=== PATIENT | male | born 1995 | race Caucasian/White ===

== ENCOUNTER 2018-10-25 10:38 | Emergency (ER) | payer BC ==
[~2018-10-25] VITALS: Ht 172.7 cm; Wt 111.1 kg
[~2018-10-25 10:38] MED LIST: INSASP10V SC
--- NOTE | 2018-10-25 11:33 | ED Upper Extremity ---
General Chief Complaint: Upper Extremity Stated Complaint: L ELBOW INJ Nursing Triage Note: Pt c/o L elbow pain after catching a ball yesterday. Pt reports pain worse with movement. Nursing Sepsis Screen: No Definite Risk Source: patient (MANDY CEBALLOS MD) History of Present Illness Date Seen by Provider: Oct 25, 2018 Time Seen by Provider: 11:29 Initial Comments The patient is a 23-year-old white male who presents with left elbow pain. He reports that he was playing with others. They were using a soft dodge ball. He jumped and caught the ball above his head and then was struck by another twisting his arm. He had pain in the beginning and this has increased. He notes decreased ability to rotate at the elbow and to ship mate. Pain/Injury Location: left elbow Method of Injury: direct blow (MANDY CEBALLOS MD) Allergies and Home Medications Allergies Coded Allergies: Cefaclor (Unverified Allergy, Unknown, RASH, 08/30/14) Home Medications Insulin Aspart 10 Unit/0.1 Ml Susp, Unknown Dose SC UD, (Reported) PER OMNIPOD PUMP Patient Home Medication List Home Medication List Reviewed: Yes (CHELE DELA CRUZ MD) Review of Systems Constitutional: see HPI EENTM: no symptoms reported Respiratory: no symptoms reported Cardiovascular: no symptoms reported Gastrointestinal: no symptoms reported Genitourinary: no symptoms reported Musculoskeletal: see HPI Skin: no symptoms reported Psychiatric/Neurological: No Symptoms Reported (MADNY CEBALLOS MD) Past Spcsduw-Eyolsn-Swixfd Hx Patient Social History Alcohol Use: Denies Use Recreational Drug Use: No Smoking Status: Never a Smoker Recent Foreign Travel: No Contact w/Someone Who Travel: No Recent Infectious Disease Expo: No Recent Hopitalizations: No (MANDY CEBALLOS MD) Immunizations Up To Date Tetanus Booster (TDap): Less than 5yrs (MANDY CEBALLOS MD) Seasonal Allergies Seasonal Allergies: No (MANDY CEBALLOS MD) Past Medical History Surgeries: Yes Adenoidectomy, Orthopedic, Tonsillectomy Respiratory: No Cardiac: No Neurological: No Reproductive Disorders: No Gastrointestinal: No Musculoskeletal: No Endocrine: Yes Diabetes, Insulin dep HEENT: No Cancer: No Psychosocial: No Integumentary: No Blood Disorders: No (MANDY CEBALLOS MD) Family Medical History Completed stroke Diabetes mellitus Headache disorder Hypertension No Family History of: AIDS Abdominal aortic aneurysm Baraga's disease Alcoholism Alzheimer's disease Aphasia Arthritis Asthma Cancer of mouth Cardiovascular disease Cataracts Colon cancer Congenital disease Congenital heart disease Coronary thrombosis Cystic fibrosis Deafness or hearing loss Dementia Drug abuse Dysphasia Fibrocystic disease of breast Gastroenteritis Glaucoma Hypercholesterolemia Infertility Kidney disease Myocardial infarction Neoplasm Not obtainable due to adoption Osteoporosis Parkinson's disease Prostate cancer Psychosocial problem Respiratory disorder Seizure disorder Severe allergy Thyroid disease Tuberculosis Visual disorder Physical Exam Vital Signs Vital Signs - First Documented 10/25/18 11:22 Temp 98.4 Pulse 97 Resp 18 B/P (MAP) 130/81 (97) Pulse Ox 98 O2 Delivery Room Air (CHELE DELA CRUZ MD) Vital Signs Capillary Refill : Less Than 3 Seconds (MANDY CEBALLOS MD) Height, Weight, BMI Height: 5'8.00" Weight: 245lbs. oz. 111.624229jz; BMI Method:Stated General Appearance: mild distress HEENT: normal ENT inspection Cardiovascular: normal peripheral pulses, regular rate, rhythm, no edema, no gallop, no JVD, no murmur Respiratory: chest non-tender, lungs clear, normal breath sounds, no respiratory distress, no accessory muscle use The left distal triceps appears denser and firmer than the same area on the right. He exhibits pain to pronation. He also exhibits diminished ship mate on the left. (MANDY CEBALLOS MD) Progress/Results/Core Measures Results/Orders Vital Signs/I&O 10/25/18 11:22 Temp 98.4 Pulse 97 Resp 18 B/P (MAP) 130/81 (97) Pulse Ox 98 O2 Delivery Room Air (CHELE DELA CRUZ MD) Blood Pressure Mean: 97 Progress Progress Note : Progress Note Care of this patient was assumed from Dr. Ceballos at 12:10. Patient was reexamined. He was found to have pain with range of motion in the elbow and wrist. This pain was primarily in the medial elbow. This area was also tender. X-rays were reviewed and discussed with Dr. Banks, radiologist. If further imaging is to be done, we agreed that patient should be screened by an orthopedic provider first. Other more sophisticated imaging such as arthrogram MRI may be indicated for this patient. Patient was fitted with a sling and discharge instructions were reviewed. Names and contact information for local orthopedist were provided. (CHELE DELA CRUZ MD) Diagnostic Imaging Diagonstic Imaging: Xray Plain Films/CT/US/NM/MRI: elbow Comments Elbow x-ray viewed by me and report reviewed. See report below: NAME: GEORGETTE STOLL [facility] REC#: [id number] PT STATUS: REG ER : 1995 PHYSICIAN: MANDY CEBALLOS MD ADMIT DATE: 10/25/18/ER Draft Date of Exam:10/25/18 ELBOW, LEFT, 3 VIEWS INDICATION: Left elbow pain. Time of exam 12:04 PM 3 views left elbow are obtained. Alignment is normal. Joint spaces are well-maintained. No fracture or dislocation is identified. There is suggestion of prominence to the anterior fat pad which may indicate an elbow joint effusion. Occult fracture can also present this way but no fracture is detected. IMPRESSION: There are findings suggestive of an elbow joint effusion, considerations above. No definite fractures detected. Dictated on workstation # [id number] Dict: 10/25/18 1211 Trans: 10/25/18 1214 [facility] [id number] Interpreted by: KATYA BANKS MD (CHELE DELA CRUZ MD) Departure Impression Primary Impression: Injury of left elbow Qualified Codes: S59.902A - Unspecified injury of left elbow, initial encounter Additional Impression: Effusion, left elbow Disposition: 01 HOME, SELF-CARE Condition: Stable Departure-Patient Inst. Decision time for Depature: 12:56 (CHELE DELA CRUZ MD) Referrals: ROXANNE ORLANDO MD NO,LOCAL PHYSICIAN (PCP) Primary Care Physician SUSANNE WASHINGTON MD Patient Instructions: NO INSTRUCTIONS GIVEN Add. Discharge Instructions: Your x-rays did not show any bone fracture injuries. Use the sling for comfort. Exercise range of motion as pain allows. Gradually increase level of activity as pain allows. Return to care promptly if symptoms worsen. Follow- up with your primary care provider and an orthopedic surgeon as soon as possible. Do not exert strenuous forces on your arm/elbow until cleared by physician. Please call today to arrange appointments. Some names and contact information of orthopedic providers are listed below. In the meantime, you may ice your elbow in 20 minute intervals. Take ibuprofen up to 600 mg every 6 hours as needed for pain. Add Tylenol (acetaminophen) up to 1000 mg every 6 hours as needed for additional pain relief. All discharge instructions reviewed with patient and/or family. Voiced understanding. MANDY CEBALLOS MD Oct 25, 2018 11:33 CHELE DELA CRUZ MD Oct 25, 2018 12:41
--- NOTE | 2018-10-25 12:14 | Diagnostic Imaging Report ---
INDICATION: Left elbow pain. Time of exam 12:04 PM 3 views left elbow are obtained. Alignment is normal. Joint spaces are well-maintained. No fracture or dislocation is identified. There is suggestion of prominence to the anterior fat pad which may indicate an elbow joint effusion. Occult fracture can also present this way but no fracture is detected. IMPRESSION: There are findings suggestive of an elbow joint effusion, considerations above. No definite fractures detected. Dictated by: Dictated on workstation # [id number]
[2018-10-25 13:10] VITALS: BP 130/81
--- OUTSIDE RECORDS SUMMARY | 2018-10-26 00:43 | XMS REPORT | Continuity of Care Document ---
Author Author [facility] [address] Organization [facility] [address] Address Unknown Phone Unavailable Allergies There is no data. Medications There is no data. Problems There is no data. Procedures There is no data. Results There is no data. Encounters ACCT No. Visit Date/Time Discharge Status Pt. Type Provider Facility Loc./Unit Complaint [id number] 08/30/2014 00:02:00 08/30/2014 14:30:00 DIS Inpatient
--- OUTSIDE RECORDS SUMMARY | 2018-10-26 00:43 | XMS REPORT | Clinical Summary ---
Author Author [facility] Organization [facility] Address Unknown Phone Unavailable Care Team Providers Care Comptometrist Name Role Phone PCP Unavailable Allergies Active Allergy Reactions Severity Noted Date Comments Cefaclor 12/28/2015 Current Medications Prescription Sig. Disp. Refills Start End Date Status Date insulin aspart (NOVOLOG) Inject under the skin 3 Active 100 unit/mL injection (three) times a day before meals. ketoconazole (NIZORAL) Take one tablet (200 mg 15 tablet 0 12/28/19 Active 200 mg tablet total) by mouth daily. 16 ketoconazole (NIZORAL) 2 Apply topically daily. 30 g 0 12/28/19 Active % cream 16 Active Problems Problem Noted Date Tinea corporis 12/28/2015 Type 1 diabetes mellitus without complication (HCC) 12/28/2015 Well child visit 11/07/2014 Asthma Seasonal allergies Social anxiety disorder Social History Tobacco Use Types Packs/Day Years Used Date Never Smoker Smokeless Tobacco: Never Used Alcohol Use Drinks/Week oz/Week Comments No Sex Assigned at Date Recorded Not on file Last Filed Vital Signs Vital Sign Reading Time Taken Blood Pressure 120/82 12/28/2015 2:41 PM GUITAR TECHNICIAN Pulse 83 12/28/2015 2:41 PM GUITAR TECHNICIAN Temperature - - Respiratory Rate - - Oxygen Saturation - - Inhaled Oxygen - - Concentration Weight 97.5 kg (215 lb) 12/28/2015 2:41 PM GUITAR TECHNICIAN Height - - Body Mass Index - - Plan of Treatment Health Maintenance Due Date Last Done Comments Diabetes Mellitus 1997 Hemoglobin A1C Diabetes Mellitus 1997 Ophthalmology Exam Diabetes Mellitus Urine 1997 Microalbumin Lipid Screening 1997 Td # 1997 Diabetes Mellitus Foot 2007 Exam HPV Vaccine (1 - Male 2012 3-dose series) MCV4 Vaccine (1 of 1 - 2013 2-dose series) Pneumococcal Immunization 2016 19-64 Low/Medium Risk# (1 of 1 - PPSV23) Influenza Vaccine (#1) 2018 Results Not on filefrom Last 3 Months
== END 2018-10-25 13:10 | disposition home or self-care (01) ==
LOC: EDUNIT# 10:38 → ER 10:39
DX: S59.902A Unspecified injury of left elbow, initial encounter (principal); M25.422 Effusion, left elbow; E11.9 Type 2 diabetes mellitus without complications; Z82.49 Family history of ischemic heart disease and other diseases of the circulatory system; Z88.8 Allergy status to other drugs, medicaments and biological substances; Z79.4 Long term (current) use of insulin; Z90.89 Acquired absence of other organs; W51.XXXA Accidental striking against or bumped into by another person, initial encounter; X50.1XXA Overexertion from prolonged static or awkward postures, initial encounter; Y93.64 Activity, baseball
CPT/HCPCS: 73080

== ENCOUNTER 2019-07-26 21:13 | Emergency (ER) | payer BC ==
[~2019-07-26] VITALS: Ht 172.7 cm; Wt 117.9 kg
--- NOTE | 2019-07-26 21:44 | Diagnostic Imaging Report ---
INDICATION: Injury, lateral left foot pain 3 views of the left foot show no fracture, dislocation or other abnormality. IMPRESSION: Normal left foot. Dictated by: Dictated on workstation # [id number]
--- NOTE | 2019-07-26 21:45 | Diagnostic Imaging Report ---
INDICATION: Injury, left ankle pain 3 views of the left ankle show no fracture, dislocation or other abnormality. IMPRESSION: Normal left ankle. Dictated by: Dictated on workstation # [id number]
--- NOTE | 2019-07-26 21:51 | ED Lower Extremity ---
General Chief Complaint: Lower Extremity Stated Complaint: L FOOT/ANKLE PAIN Nursing Triage Note: LEFT LATERAL ANKLE PAIN RADIATING TO TOES AFTER ROLLING ANKLE APPROX. 1230. Nursing Sepsis Screen: No Definite Risk Source: patient Exam Limitations: no limitations History of Present Illness Date Seen by Provider: Jul 26, 2019 Time Seen by Provider: 21:48 Initial Comments To ER with reports of left lateral ankle and foot pain after he twisted it during a class at approximately 12:30 PM today. Onset: just prior to arrival Severity: moderate Pain/Injury Location: left foot, left ankle Method of Injury: twisted Modifying Factors: Worse With Movement Allergies and Home Medications Allergies Coded Allergies: Cefaclor (Unverified Allergy, Unknown, RASH, 08/30/14) Home Medications Insulin Aspart 10 Unit/0.1 Ml Susp, Unknown Dose SC UD, (Reported) PER OMNIPOD PUMP Patient Home Medication List Home Medication List Reviewed: Yes Review of Systems Constitutional: see HPI EENTM: see HPI Respiratory: no symptoms reported Cardiovascular: no symptoms reported Genitourinary: no symptoms reported Musculoskeletal: see HPI Skin: no symptoms reported Psychiatric/Neurological: No Symptoms Reported Past Liugowf-Hdugbh-Keliqb Hx Patient Social History Alcohol Use: Denies Use Recreational Drug Use: No Smoking Status: Never a Smoker 2nd Hand Smoke Exposure: No Recent Foreign Travel: No Contact w/Someone Who Travel: No Recent Infectious Disease Expo: No Recent Hopitalizations: No Physical Abuse: No Sexual Abuse: No Mistreated: No Fear: No Immunizations Up To Date Tetanus Booster (TDap): Less than 5yrs Seasonal Allergies Seasonal Allergies: No Past Medical History Surgeries: Yes Adenoidectomy, Orthopedic, Tonsillectomy Respiratory: No Cardiac: No Neurological: No Reproductive Disorders: No Genitourinary: No Gastrointestinal: No Musculoskeletal: No Endocrine: Yes Diabetes, Insulin dep HEENT: No Cancer: No Psychosocial: No Integumentary: No Blood Disorders: No Family Medical History Completed stroke Diabetes mellitus Headache disorder Hypertension No Family History of: AIDS Abdominal aortic aneurysm Jacob's disease Alcoholism Alzheimer's disease Aphasia Arthritis Asthma Cancer of mouth Cardiovascular disease Cataracts Colon cancer Congenital disease Congenital heart disease Coronary thrombosis Cystic fibrosis Deafness or hearing loss Dementia Drug abuse Dysphasia Fibrocystic disease of breast Gastroenteritis Glaucoma Hypercholesterolemia Infertility Kidney disease Myocardial infarction Neoplasm Not obtainable due to adoption Osteoporosis Parkinson's disease Prostate cancer Psychosocial problem Respiratory disorder Seizure disorder Severe allergy Thyroid disease Tuberculosis Visual disorder Physical Exam Vital Signs Vital Signs - First Documented 07/26/19 21:16 Temp 97.8 Pulse 89 Resp 18 B/P (MAP) 136/99 (111) Pulse Ox 99 O2 Delivery Room Air Capillary Refill : Less Than 3 Seconds Height, Weight, BMI Height: 5'8.00" Weight: 260lbs. oz. 117.096109yh; 31.01 BMI Method:Stated General Appearance: WD/WN, no apparent distress Respiratory: no respiratory distress, no accessory muscle use Hips: bilateral hip non-tender, bilateral hip normal inspection, bilateral hip normal range of motion Legs: bilateral leg non-tender, bilateral leg normal inspection, bilateral leg normal range of motion Knees: bilateral knee non-tender, bilateral knee normal inspection, bilateral knee normal range of motion Ankles: left ankle pain (lateral malleolus pain and swelling), left ankle soft tissue tenderness, left ankle swelling Feet: left foot nodule, left foot pain, left foot soft tissue tenderness Neurologic/Psychiatric: alert, normal mood/affect, oriented x 3 Skin: normal color, warm/dry Progress/Results/Core Measures Results/Orders Vital Signs/I&O 07/26/19 21:16 Temp 97.8 Pulse 89 Resp 18 B/P (MAP) 136/99 (111) Pulse Ox 99 O2 Delivery Room Air Blood Pressure Mean: 111 Departure Impression Primary Impression: Sprain and strain of ankle Disposition: 01 HOME, SELF-CARE Condition: Stable Departure-Patient Inst. Decision time for Depature: 21:50 Referrals: NO,LOCAL PHYSICIAN (PCP/Family) Primary Care Physician Patient Instructions: Ankle Sprain (DC) Add. Discharge Instructions: 1. Stay off the foot by using crutches until you're able to bear weight without severe pain. Then you can stop using the crutches. Tylenol and ibuprofen for pain control. Ice pack to the area 30 minutes on and 30 minutes off starting tonight continuing into tomorrow as needed for additional pain control. All discharge instructions reviewed with patient and/or family. Voiced understanding. Work/School Note: Work Release Form Date Seen in the Emergency Department: Jul 26, 2019 Return to Work: Jul 28, 2019 MARYURI BOSS APRN Jul 26, 2019 21:51
[2019-07-26 21:55] VITALS: BP 136/99
== END 2019-07-26 21:53 | disposition home or self-care (01) ==
LOC: EDUNIT# 21:13 → ER 21:14
DX: S93.402A Sprain of unspecified ligament of left ankle, initial encounter (principal); E11.9 Type 2 diabetes mellitus without complications; Z88.1 Allergy status to other antibiotic agents; Z90.89 Acquired absence of other organs; Z82.49 Family history of ischemic heart disease and other diseases of the circulatory system; X50.1XXA Overexertion from prolonged static or awkward postures, initial encounter
CPT/HCPCS: 73610; 73630